=== PATIENT | male | born 1975 | race Two or more races ===

== ENCOUNTER 2016-08-29 22:00 | Emergency (ER) | payer OTHER ==
[2016-08-29 22:20] VITALS: BP 128/78
--- NOTE | 2016-08-29 23:03 | RAD ---
INDICATION: Swallowed a small glass object COMPARISON: None TECHNIQUE: A single view of the abdomen is submitted. FINDINGS: Bones: There are no acute bony findings. Soft tissues: The soft tissues appear normal. The psoas margins are sharp. Bowel gas pattern: Normal Calcifications: There is a small, nonspecific, calcification in the right mid abdomen adjacent to the transverse process of L3 believed to represent an incidental finding. Other: No foreign bodies appreciated IMPRESSION: NO FOREIGN BODY IS IDENTIFIED.
--- NOTE | 2016-08-30 00:35 | ED ---
Abdominal Pain/Male - HPI Summary HPI Summary: 41 male presents to ED with complaint of possibly swallowing glass today just prior to arrival. Patient states he was eating soup his made when he noticed after a few spoonfuls that there was pieces of glass in the soup. Patient called his who stated that she broke a glass earlier however did not think to check that it went in the soup. Patient states it is possible he swallowed some before noticing it due to taking heaping spoonfuls. Admits to some diffuse abdominal pain that he describes as "twisting and colicky". He does not know if it is just because of thinking he swallowed glass. No nausea vomiting. He has not had to go to the bathroom since the incident. He has not taken any medication. States the pain began in the LUQ and has now moved more the the middle of his abdomen/epigastric area. He feels like his stomach his "moving and digesting". States pain is worse than earlier today. No vomiting blood. - History of Current Complaint Chief Complaint: EDGeneral Stated Complaint: MIGHT HAVE SWALLOWED A PIECE OF GLASS Time Seen by Provider: 08/30/16 00:19 Hx Obtained From: Patient Onset/Duration: Sudden Onset Timing: Intermittent Severity Initially: Mild Severity Currently: Moderate Pain Intensity: 6 Pain Scale Used: 0-10 Numeric Location: Diffuse - LUQ, epigastric LLQ Character: Colicy - "Twisting" Aggravating Factor(s): Nothing Alleviating Factor(s): Nothing Associated Signs And Symptoms: Negative: Diaphoresis, Fever, Constipation, Decreased Appetite, Nausea, Vomiting, Diarrhea - Allergies/Home Medications Allergies/Adverse Reactions: Allergies Allergy/AdvReac Type Severity Reaction Status Date / Time Silver Sulfadiazine Allergy Rash Verified 07/12/16 13:45 PMH/Surg Hx/FS Hx/Imm Hx Endocrine/Hematology History: Denies: Hx Anemia Cardiovascular History: Denies: Hx Hypertension Respiratory History: Denies: Hx Asthma - Surgical History Surgery Procedure, Year, and Place: none - Immunization History Immunizations Up to Date: Yes Infectious Disease History: No Infectious Disease History: Denies: History Other Infectious Disease, Traveled Outside the [place] in Last 30 Days - Family History Known Family History: Positive: None - Social History Alcohol Use: None Substance Use Type: Reports: None Smoking Status (MU): Never Smoked Tobacco Review of Systems Constitutional: Negative Eyes: Negative ENT: Negative Cardiovascular: Negative Respiratory: Negative Positive: Abdominal Pain Musculoskeletal: Negative Skin: Negative Neurological: Negative Psychological: Normal All Other Systems Reviewed And Are Negative: Yes Physical Exam Triage Information Reviewed: Yes Vital Signs On Initial Exam: Initial Vitals Temp Pulse Resp BP Pulse Ox 98.2 F 70 16 128/78 97 08/29/16 22:17 08/29/16 22:17 08/29/16 22:17 08/29/16 22:17 08/29/16 22:17 Vital Signs Reviewed: Yes Appearance: Positive: Well-Appearing, No Pain Distress, Well-Nourished Skin: Positive: Warm, Skin Color Reflects Adequate Perfusion, Dry Head/Face: Positive: Normal Head/Face Inspection Eyes: Positive: Conjunctiva Clear ENT: Positive: Hearing grossly normal Neck: Positive: Supple, Nontender Respiratory/Lung Sounds: Positive: Clear to Auscultation, Breath Sounds Present Cardiovascular: Positive: Normal, RRR, Pulses are Symmetrical in both Upper and Lower Extremities Abdomen Description: Positive: Nontender, No Organomegaly, Soft. Negative: Distended, Guarding, Peritoneal Signs Bowel Sounds: Positive: Present Musculoskeletal: Positive: Normal, Strength/ROM Intact Neurological: Positive: Normal, Sensory/Motor Intact, Alert, Oriented to Person Place, Time Psychiatric: Positive: Normal Diagnostics - Vital Signs Vital Signs Temp Pulse Resp BP Pulse Ox 08/29/16 22:17 98.2 F 70 16 128/78 97 - Laboratory Lab Statement: Any lab studies that have been ordered have been reviewed, and results considered in the medical decision making process. - Radiology abdomen Xray Interpretation: No Acute Changes - NO FOREIGN BODY IS IDENTIFIED Radiology Interpretation Completed By: Radiologist Abdominal Pain Fem Course/Dx - Course Course Of Treatment: due to negative x-ray of abdomen of foreign body and non- tender on physical exam while palpating and percussin abdomen patient will be discharged with GI referral and a PPI x 7days. discussed case with Dr Murrieta. Patient is aware of worsening signs and symptoms to watch out for such as vomiting, blood, difficulty going the bathroom, and increasing/intense abdominal pain. - Diagnoses Differential Diagnosis/HQI/PQRI: Bowel Obstruction, Other - FB, peritonitis, bowel perforation Provider Diagnoses: Foreign body ingestion Discharge - Discharge Plan Condition: Stable Disposition: HOME Patient Education Materials: Foreign Body Ingestion (ED) Referrals: Gregg Gray MD [Medical Doctor] - Additional Instructions: Take prescribed PPI for the next 7 days. If symptoms worsen or you develop new symptoms such as vomiting, blood in vomit, difficulty going to the bathroom, increasing abdominal pain and intensity or fever/chills please seek medical attention immediately.
[2016-08-30] MEDS ORDERED: Omeprazole CAP* 20 MG PO ONE (00:47)
--- NOTE | 2016-11-01 07:43 | ED ---
Yo Fraire Anna, scribed for Enmnauel Murrieta MD on 08/30/16 at 0044 . Progress - Progress Note Progress Note: Called to see pt by VINNIE Caceres. Pt is a 41 y/o male coming to [facility] after he ate some glass or plastic while eating soup. He denies vomiting blood or blood in stool. Mild abdominal discomfort. Nontender upon exam. GI follow up recommended. PPI. Antacid. Do not suspect surgical abdomen at this time. No foreign body on XR. Course/Dx - Diagnoses Provider Diagnoses: Ingestion of foreign body The documentation as recorded by the nicoleibeYo Anna accurately reflects the service I personally performed and the decisions made by Glenny ramachandran Jerry, MD.
== END 2016-08-30 00:50 | disposition home or self-care (01) ==
LOC: ED 22:00
DX: T18.9XXA Foreign body of alimentary tract, part unspecified, initial encounter (principal); R10.13 Epigastric pain; R10.9 Unspecified abdominal pain; X58.XXXA Exposure to other specified factors, initial encounter; Y93.9 Activity, unspecified; Y92.9 Unspecified place or not applicable; Y99.9 Unspecified external cause status
CPT/HCPCS: 74000; 99281

== ENCOUNTER 2016-10-05 10:19 | Observation (INO) | payer OTHER ==
[2016-10-05] MEDS ORDERED: Ondansetron INJ* 2 MG/ML VIAL IV ONE (11:29)
[2016-10-05] MEDS ORDERED: NS 0.9% 1000 ML* 1,000 ML IV ONE (11:29)
[2016-10-05 11:46] LABS: Hematocrit 50 % (42-52); Hemoglobin 16.7 g/dl (14.0-18.0); Mean Corpuscular HGB Conc 34 g/dl (31-36); Mean Corpuscular Hemoglobin 30 pg (27-31); Mean Corpuscular Volume 89 fL (80-94); Mean Platelet Volume 7 um3 (7.4-10.4); Red Cell Distribution Width 13 % (10.5-15); White Blood Count 6.5 10^3/ul (3.5-10.8)
[2016-10-05 12:01] LABS: Albumin 4.1 g/dL (3.2-5.2); BUN/Creatinine Ratio 8.4 (8-20); C Reactive Protein 3.58 mg/L (< 5.00); Calcium 9.7 mg/dL (8.6-10.3); EGFR African American 113.5 (>60); EGFR Non-African American 88.3 (>60); Globulin 3.2 g/dL (2-4); Potassium 3.9 mmol/L (3.5-5.0); Total Bilirubin 0.5 mg/dL (0.2-1.0); Total Protein 7.3 g/dL (6.4-8.9)
[2016-10-05] MEDS ORDERED: Iohexol 300* (CONTRAST) 10 ML SDV IV ONE (14:50)
[2016-10-05] MEDS ORDERED: metroNIDAZOLE IV 500 MG/100ML* 500 MG/100 ML BAG IVPB SCH ×2 (15:00→17:00)
[2016-10-05] MEDS ORDERED: Ciprofloxacin 400MG IVPREMIX(* 400 MG/200 ML BAG IVPB SCH ×2 (15:00→17:00)
--- NOTE | 2016-10-05 16:05 | RAD ---
CLINICAL HISTORY: Left abdominal pain and rectal bleeding COMPARISON: None TECHNIQUE: Contrast enhanced CT examination of the abdomen and pelvis from the lung bases through the initial tuberosities. The patient received 113 mL Omnipaque 300 intravenously prior to imaging.The patient received oral contrast as well prior to imaging. FINDINGS: VISUALIZED LUNG BASES: There are hypoventilatory changes and pleural-based linear densities at the dependent-most portions of the lungs. There is no pleural effusion. ABDOMEN AND PELVIS: The right lobe of the liver there is a 5 mm hypodensity (image 23) that cannot be characterized further. The liver is otherwise normal in appearance. The spleen, pancreas and adrenal glands are grossly normal in appearance. The gallbladder is normal. The kidneys are normal in appearance without focal mass, calcification or signs of hydronephrosis. The oral contrast has progressed as far as the rectum. The terminal ileum exhibits questionable mild wall thickening measure 5 mm in thickness (image 51 of 103). The appendix is identified in the right lower quadrant measuring 5 mm in diameter and not exhibiting any signs of acute inflammatory change. In the superior descending colon there is 2 linear metallic objects in the lumen (axial image 35 and coronal image 54 and 53). More distally the distal colon exhibits questionable wall thickening measuring up to 7 mm which may simply be the consequence of underdistention (axial image 77 of 105). There is no gross retroperitoneal or mesenteric lymphadenopathy. The pelvic viscera is normal in appearance. The abdominal aorta and iliac arteries are normal in course and diameter. There are no sinister bone lesions. IMPRESSION: 1. There is highly questionable mild wall thickening involving the terminal ileum and distal rectum which could be seen in inflammatory or infectious bowel disease or simply be the consequence of incomplete distention. 2. There are metallic structures that appear to be within the lumen of the descending colon as described above. Please correlate to the patient's surgical history or recent ingestion of metallic guidance.
[2016-10-05] MEDS ORDERED: Ondansetron INJ* 2 MG/ML VIAL IV PRN (16:13)
[2016-10-05] MEDS ORDERED: NS 0.9% 1000 ML* 1,000 ML IV SCH (16:15)
--- NOTE | 2016-10-05 17:13 | ED ---
Aurea Fraire Janilya, scribed for Mickey Crandall MD on 10/05/16 at 1124 . GI/ HPI - HPI Summary HPI Summary: A 41 y/o male came in to [facility] presenting w/ a gradual onset of constant left sided abd pain starting yesterday. Movement makes the pain worse; nothing makes it better. Pt reports he had colonoscopy yesterday, performed by Dr. Arguelles. Pt states he had removal of 2 polyps. In addition to the abd pain, pt has been bleeding rectally since the procedure. The frequency and amount has increased over time. Pt has been taking Cipro for Abx and has not been taking anything for the pain. - History of Current Complaint Chief Complaint: EDGIBleed Time Seen by Provider: 10/05/16 11:17 Stated Complaint: LT ABD PAIN/RECTAL BLEED Hx Obtained From: Patient Onset/Duration: Started Hours Ago, Atraumatic, Still Present Timing: Constant Severity: Moderate Current Severity: Moderate Pain Intensity: 6 Location of Pain: LUQ, LLQ Pain Characteristics: Dull Aggravating Factor(s): Movement Alleviating Factor(s): Nothing - Allergy/Home Medications Allergies/Adverse Reactions: Allergies Allergy/AdvReac Type Severity Reaction Status Date / Time Silver Sulfadiazine Allergy Rash Verified 10/05/16 10:42 PMH/Surg Hx/FS Hx/Imm Hx Previously Healthy: Yes Endocrine/Hematology History: Denies: Hx Anemia Cardiovascular History: Denies: Hx Hypertension Respiratory History: Denies: Hx Asthma - Surgical History Surgery Procedure, Year, and Place: none Infectious Disease History: No Infectious Disease History: Denies: History Other Infectious Disease, Traveled Outside the [place] in Last 30 Days - Family History Known Family History: Positive: None - Social History Alcohol Use: None Substance Use Type: Reports: None Smoking Status (MU): Never Smoked Tobacco Review of Systems Positive: Abdominal Pain Positive: other - rectal bleeding All Other Systems Reviewed And Are Negative: Yes Physical Exam Triage Information Reviewed: Yes Vital Signs On Initial Exam: Initial Vitals Temp Pulse Resp BP Pulse Ox 97.8 F 76 16 113/65 99 10/05/16 10:42 10/05/16 10:42 10/05/16 10:42 10/05/16 10:42 10/05/16 10:42 Vital Signs Reviewed: Yes Appearance: Positive: Well-Appearing, No Pain Distress Skin: Positive: Warm, Skin Color Reflects Adequate Perfusion, Dry Head/Face: Positive: Normal Head/Face Inspection Eyes: Positive: Normal ENT: Positive: Normal ENT inspection Neck: Positive: Supple, Nontender Respiratory/Lung Sounds: Positive: Clear to Auscultation, Breath Sounds Present Cardiovascular: Positive: RRR Abdomen Description: Positive: Nontender, Soft Bowel Sounds: Positive: Present Musculoskeletal: Positive: Normal Neurological: Positive: Normal Psychiatric: Positive: Affect/Mood Appropriate Diagnostics - Vital Signs Vital Signs Temp Pulse Resp BP Pulse Ox 10/05/16 10:42 97.8 F 76 16 113/65 99 - Laboratory Lab Results: Lab Results 10/05/16 10/05/16 Range/Units 11:30 11:30 WBC 6.5 (3.5-10.8) 10^3/ul RBC 5.60 H (4.0-5.4) 10^6/ul Hgb 16.7 (14.0-18.0) g/dl Hct 50 (42-52) % MCV 89 (80-94) fL MCH 30 (27-31) pg MCHC 34 (31-36) g/dl RDW 13 (10.5-15) % Plt Count 201 (150-450) 10^3/ul MPV 7 L (7.4-10.4) um3 Neut % (Auto) 58.0 (38-83) % Lymph % (Auto) 33.1 (25-47) % [place] % (Auto) 7.1 (1-9) % Eos % (Auto) 1.3 (0-6) % Baso % (Auto) 0.5 (0-2) % Absolute Neuts (auto) 3.8 (1.5-7.7) 10^3/ul Absolute Lymphs (auto) 2.2 (1.0-4.8) 10^3/ul Absolute Monos (auto) 0.5 (0-0.8) 10^3/ul Absolute Eos (auto) 0.1 (0-0.6) 10^3/ul Absolute Basos (auto) 0 (0-0.2) 10^3/ul Absolute Nucleated RBC 0.01 10^3/ul Nucleated RBC % 0.1 Sodium 136 (133-145) mmol/L Potassium 3.9 (3.5-5.0) mmol/L Chloride 103 (101-111) mmol/L Carbon Dioxide 28 (22-32) mmol/L Anion Gap 5 (2-11) mmol/L BUN 8 (6-24) mg/dL Creatinine 0.95 (0.67-1.17) mg/dL Est GFR ( Amer) 113.5 (>60) Est GFR (Non-Af Amer) 88.3 (>60) BUN/Creatinine Ratio 8.4 (8-20) Glucose 80 (70-100) mg/dL Calcium 9.7 (8.6-10.3) mg/dL Total Bilirubin 0.50 (0.2-1.0) mg/dL AST 12 L (13-39) U/L ALT 20 (7-52) U/L Alkaline Phosphatase 53 (34-104) U/L C-Reactive Protein 3.58 (< 5.00) mg/L Total Protein 7.3 (6.4-8.9) g/dL Albumin 4.1 (3.2-5.2) g/dL Globulin 3.2 (2-4) g/dL Albumin/Globulin Ratio 1.3 (1-3) Result Diagrams: 10/05/16 11:30 10/05/16 11:30 Lab Statement: Any lab studies that have been ordered have been reviewed, and results considered in the medical decision making process. - CT abd/pel CT Interpretation: Positive (See Comments) - IMPRESSION: 1. There is highly questionable mild wall thickening involving the terminal ileum and distal rectum which could be seen in inflammatory or infectious bowel disease or simply be the consequence of incomplete distention. 2. There are metallic structures that appear to be within the lumen of the descending colon as described above. Please correlate to the patient's surgical history or recent ingestion of metallic guidance. CT Interpretation Completed By: Radiologist GIGU Course/Dx - Course Course Of Treatment: Mr. Tripp Garrison is stable for the time being but Dr. Gray was consulted as it is difficult to assess the amount of bleeding that he may have. Dr. Gray decided to OBV him for observation. - Diagnoses Provider Diagnoses: GI bleed - Physician Notifications Discussed Care Of Patient With: Dr. Gray, on-call for Dr. Arguelles ( gastroenterology) at 1255: recommends CT scan of pt; agrees to evalute pt. Discharge - Discharge Plan Condition: Stable Disposition: ADMITTED TO [facility] The documentation as recorded by the Aurea barraza Janilya accurately reflects the service I personally performed and the decisions made by me, Mickey Crandall MD.
--- NOTE | 2016-10-05 17:41 | CONS ---
CONSULTATION NOTE: DATE OF CONSULT: 10/05/16 REASON FOR THE CONSULTATION: Left-sided abdominal pain, rectal bleeding 1 day after colonoscopy and polypectomy. NARRATIVE: This is a very hilario healthy 41-year-old gentleman who underwent a screening colonoscopy yesterday due to a family history of colorectal cancer. At the time of that study, polyps were removed, one in particular involving the descending colon was removed with a cold snare. Apparently, a large mucosal defect was created thereafter and clips were applied. The results were discussed with the patient and his , he was kept on a clear liquid diet and prescribed ciprofloxacin to go home with. After the procedure, he did not report any pain or symptoms. However, through the night, he developed episodes of bright red blood per rectum. He describes fresh red blood, perhaps 4 times through the night with loose stools. He also developed pain in the left side of his abdomen, particularly if he moves or turns. He was advised to come to the emergency room. He did not have any fevers, nausea or vomiting. He has only been on clear liquids since the procedure. On arrival to the emergency room, he appeared hemodynamically stable. He was afebrile. Initial data demonstrated a white count of 6.5 and a hemoglobin of 16.7. He is awaiting a CAT scan of the abdomen. Prior to the colonoscopy, he was not having any GI symptoms and he states that this was his third colonoscopy. However, this was the first time polyps were removed. PAST MEDICAL HISTORY: Negative. He has had no abdominal surgeries. MEDICATIONS: Ambulatory medicines were just the ciprofloxacin. FAMILY HISTORY: Notable for father who had colon cancer at a very young age. REVIEW OF SYSTEMS: He has had no nausea, vomiting, fevers, chills, or melena. He has not been on any aspirin or NSAIDs. PHYSICAL EXAM: He is a pleasant gentleman, looking comfortable in no acute distress. He is not pale. Temperature of 97.8. Blood pressure is 113/65, heart rate is 76 and regular. He is anicteric. He appears clinically euvolemic. Lungs are clear. Cardiac exam reveals a regular rhythm without murmur. Abdomen is soft. There is mild tenderness in the left upper quadrant without rebound, guarding, or rigidity. Bowel sounds are hyperactive. There is no organomegaly. On rectal exam, there is no palpable lesion and there is is brown guaiac-positive stool. DIAGNOSTIC STUDIES/LAB DATA: Other data include a BUN of 8, creatinine of 0.95. Normal liver panel. CT scan is pending at this time. IMPRESSION: A 41-year-old gentleman who underwent a colonoscopy for routine reasons yesterday but had a relatively large mucosal defect created by polypectomy, now presenting with bleeding and pain. This likely is related to the poly-pectomy site, I doubt a significant complication such as perforation, but mucosal injury and perhaps postpolypectomy bleed is the likely etiology. I would recommend admission at least for 24 hours after the CAT scan is performed. If the CAT scan points to a more significant pathology, then further evaluation, perhaps surgical will not be required. If he has more extensive bleeding, then repeat colonoscopy can be carried out. This was explained to the patient. CC: Dr. Arguelles * [id number]/[facility] #: [id number] MTDD
[2016-10-05] MEDS: Ciprofloxacin 400MG IVPREMIX(* 400 MG/200 ML BAG IVPB SCH (17:51)
[2016-10-05 17:56] LABS: Hematocrit 48 % (42-52); Hemoglobin 15.9 g/dl (14.0-18.0)
[2016-10-05] MEDS: metroNIDAZOLE IV 500 MG/100ML* 500 MG/100 ML BAG IVPB SCH (20:25)
--- NOTE | 2016-10-05 20:55 | HP ---
HISTORY AND PHYSICAL: DATE OF ADMISSION: 10/05/16 PRIMARY CARE PROVIDER: [facility]. ATTENDING PHYSICIAN WHILE IN THE HOSPITAL: Dr. Fernanda Gandara* (report dictated by Camacho Guallpa NP) CHIEF COMPLAINT: 1. Bright red blood per rectum. 2. Left lower quadrant abdominal pain. HISTORY OF PRESENT ILLNESS: Mr. Almaguer is a 41-year-old male patient, who was previously healthy. He denied any chronic medical problems and denied having any previous surgeries. He yesterday underwent a routine screening colonoscopy as his father had a history of colon cancer at the age of 47. Three polyps were found and removed. I will refer you to Dr. Arguelles's report for further details. The patient was instructed that should he have any abdominal discomfort or bright red blood per rectum that he should seek medical attention. Overnight, last night, he developed left lower quadrant abdominal discomfort, cramping, and pain, and then he started having bright red blood per rectum this morning in the early hours, so he presented to the ER for further evaluation and care. He denies having any lightheadedness. Denies feeling short of breath. He says that the pain is improved now. He says his last bowel movement consisted of clots. He denied having any fevers or chills and states that the pain is quite tolerable at this point. He came to the ER, was evaluated here by Dr. Arguelles's associate, Dr. Gray, and also by Dr. Arguelles and it was felt that the patient deserved an overnight stay to monitor for bleeding, place him on antibiotics, and he also underwent CT imaging, which did not show any free air. Hospitalist service was asked to evaluate for admission. PAST MEDICAL HISTORY: Denied. PAST SURGICAL HISTORY: Denied. HOME MEDICATIONS: Denied. ALLERGIES TO MEDICATIONS: Include SILVADENE. FAMILY HISTORY: His mother's history was reviewed, essentially noncontributory , but his father had a colon cancer at the age of 47. SOCIAL HISTORY: He does not smoke. He does not drink. He is , with children. He is a grad student at [employer]. Surrogate decision maker is his . REVIEW OF SYSTEMS: There is no documented fever. He denied having any significant weight change. There is no double vision. He denies any ear discharge. There is no rhinorrhea. No sore throat. No thyroid enlargement. He denied having any chest pain. There is no orthopnea, there is no nocturnal dyspnea. There is no abdominal pain. There is no nausea, no vomiting. No dysuria, no frequency. No seizure, no loss of consciousness. No pruritus and no skin ulcerations. Review of 14 systems was completed, all others negative. PHYSICAL EXAMINATION GENERAL: At this time, Mr. Almaguer is a 41-year-old male patient. He is well- nourished, well-developed. He does not appear to be in any acute distress. VITAL SIGNS: Blood pressure 112/71 with a pulse of 65, respirations 18, O2 sat 97%, temperature 98.9. HEENT: Head is atraumatic and normocephalic. Eyes: Sclerae are anicteric. Throat: Oral mucosa appears to be moist. No oropharyngeal erythema. NECK: Supple. LUNGS: Clear to auscultation but no wheezes, rales, or rhonchi. HEART: Sounds S1 and S2. Regular rate and rhythm. No murmurs, rubs, or gallops. ABDOMEN: Soft, it was flat. He has some mild tenderness in the left lower quadrant. Bowel sounds present. EXTREMITIES: Pulses were 2+ throughout. He is able to move all 4 extremities with 5/5 strength. NEUROLOGIC: He is awake, alert, oriented x3. No gross focal deficits. SKIN: Intact. DIAGNOSTIC STUDIES/LAB DATA: Today revealed WBC of 6.5, RBC of 5.60, hemoglobin 16.7, hematocrit 50, platelet count of 201. Sodium was 136, potassium is 3.9, chloride of 103, bicarb 28, BUN 8, creatinine 0.95, glucose was 80, calcium 9.7. Total bili 0.5, AST 12, ALT 20, alk phos 53. Albumin of 4.1. He had an abdominal pelvic CT scan obtained today showed there is highly questionable mild wall thickening involving the terminal ileum and distal rectum , which could be seen in inflammatory or infectious bowel disease or simply be the consequence of incomplete distention. Impression 2: There are metallic structures that appear to be within the lumen of the descending colon as described above. Please correlate to the patient's surgical history or recent ingestion metallic guidance. Old medical records were reviewed. ASSESSMENT AND PLAN: Mr. Almaguer is a 41-year-old male patient, who underwent colonoscopy yesterday with [address] Arguelles. Postcolonoscopy, he was having abdominal discomfort with rectal bleeding. He came to the ER, was evaluated. CT scan was negative; however, he will be admitted under observation status for: 1. Abdominal discomfort with lower rectal bleeding. I suspect this is probably consequential from the recent colonoscopy. Our plan at this point though is to go ahead and hydrate him, keep him on a clear liquid diet, monitor him overnight for any fevers, and place him on antibiotics empirically and continue to follow his symptoms. Should he remain afebrile and he tolerates a diet tomorrow he possibly could be discharged home tomorrow, but we would like to observe him overnight. We have also ordered empiric Cipro and Flagyl. 2. DVT prophylaxis. He will be placed on SCDs. 3. Code status. Full code. 4. Fluids, electrolytes, and nutrition. Again, clear liquid diet. I have ordered normal saline at 100 cc an hour for 1 more liter. TIME SPENT: On the admission 60 minutes, greater than half the time spent face- to- face with the patient obtaining my history and physical; other half time spent going over the plan of care with the patient and implementing plan of care. I discussed plan of care with my attending, Dr. Gandara; she is in agreement. CAMACHO GUALLPA NP CC: [facility]; Dr. Gray; Dr. Arguelles * [id number]/[facility] #: [id number] [facility]
[2016-10-06] MEDS: metroNIDAZOLE IV 500 MG/100ML* 500 MG/100 ML BAG IVPB SCH ×2 (05:33→11:57)
[2016-10-06] MEDS: Ciprofloxacin 400MG IVPREMIX(* 400 MG/200 ML BAG IVPB SCH (06:46)
[2016-10-06 07:37] LABS: Hematocrit 46 % (42-52); Hemoglobin 15.3 g/dl (14.0-18.0); Mean Corpuscular HGB Conc 34 g/dl (31-36); Mean Corpuscular Hemoglobin 30 pg (27-31); Mean Corpuscular Volume 90 fL (80-94); Mean Platelet Volume 8 um3 (7.4-10.4); Red Blood Count 5.08 10^6/ul (4.0-5.4); Red Cell Distribution Width 13 % (10.5-15); White Blood Count 5.7 10^3/ul (3.5-10.8)
[2016-10-06 07:50] LABS: BUN/Creatinine Ratio 7.5 (8-20); Calcium 8.9 mg/dL (8.6-10.3); EGFR Non-African American 77.8 (>60); Potassium 3.7 mmol/L (3.5-5.0)
--- NOTE | 2016-10-06 09:58 | DCNOTE ---
Patient seen this morning. Pain has mostly resolved. No further bleeding. Seen by Dr. Gray this AM who would like to advance diet and if tolerated, d/c home. On exam, RRR, s1 and s2 present, no m/g/r, abd soft, NTND, BS+ Will trial regular diet, if tolerated will discharge home to continue outpatient ABx ordered by Dr. Arguelles and f/u with GI in the office.
[2016-10-06 12:07] VITALS: BP 110/65
--- NOTE | 2016-10-07 02:16 | DS ---
DISCHARGE SUMMARY: DATE OF ADMISSION: 10/05/16 DATE OF DISCHARGE: 10/06/16 PRIMARY CARE PHYSICIAN: Yarelis Cisneros. CONSULTS DURING HOSPITALIZATION: Dr. Gregg Gray, Gastroenterology. DISCHARGE MEDICATION REGIMEN: Ciprofloxacin 500 mg by mouth 2 times daily. STUDIES DONE DURING HOSPITALIZATION: CT abdomen and pelvis: There is highly questionable mild wall thickening involving the terminal ileum and distal rectum which could be seen in inflammatory infectious bowel disease or simply could be the consequence of incomplete distention. There are metallic structures that appeared to be within the lumen of the descending colon as described above. HISTORY OF PRESENT ILLNESS AND HOSPITAL SUMMARY: Please see the full history and physical by Camacho Guallpa NP, for full details. Briefly, Mr. Tripp Garrison is a 41- year-old man with no past medical history who presented to the hospital after he developed abdominal pain and bright red blood per rectum after a colonoscopy by Dr. Arguelles. The patient had 3 polyps removed with a large mucosal defect created with one of the polypectomies. Clips were placed, and the patient was discharged home with instructions to return to the hospital if he had any abdominal pain or bleeding which he did develop. He had bright red blood per rectum about 4 times overnight and presented to the hospital the following day. He was seen by GI. His hemoglobin was trended, which was down slightly; however, still at 15.3 on the day of discharge. His bleeding was ____ _ in the hospital and he tolerated a regular diet. The patient will be discharged home to complete his outpatient course of the ciprofloxacin that was prescribed by Dr. Arguelles and will follow up with him as well as with the PCP as an outpatient. TIME SPENT: Total time spent on this discharge 35 minutes. This is a summary of the hospitalization. Please see the full medical record for further details. CC: Yarelis Cisneros; Dr. Romie Arguelles; Dr. Gregg Gray * [id number]/[facility] #: [id number] [facility]
== END 2016-10-06 13:30 | disposition home or self-care (01) ==
LOC: ED 10:19 → MED 14:54
PROVIDERS: ADMIT Internal Medicine; ATTEND Hospitalist
DX: K91.840 Postprocedural hemorrhage of a digestive system organ or structure following a digestive system procedure (principal); R10.32 Left lower quadrant pain
CPT/HCPCS: 36415; 74177; 80048; 80053; 85014; 85018; 85025; 85610; 86140; 96361; 96365; 96366; 96375; 99283; G0378; J0744; J2405; Q9967

== ENCOUNTER 2018-01-07 15:45 | Emergency (ER) | payer OTHER ==
[2018-01-07] MEDS ORDERED: Erythromycin TOPICAL GEL* 30 GM TUBE TOPICAL ONE (16:16)
--- NOTE | 2018-01-07 16:16 | ED ---
Throat Pain/Nasal Congestion - HPI Summary HPI Summary: 42-year-old male presents with bilateral styes in the past couple days. He had a stye started left eye that placed ointment on it and then he developed one right eye. No change in vision. No discharge. Has history of styes. Does not wear contacts or glasses. Did not get anything in his eye. - History of Current Complaint Chief Complaint: EDEyeProblem Time Seen by Provider: 01/07/18 16:01 - Allergies/Home Medications Allergies/Adverse Reactions: Allergies Allergy/AdvReac Type Severity Reaction Status Date / Time silver sulfadiazine Allergy Hives Verified 01/07/18 15:57 PMH/Surg Hx/FS Hx/Imm Hx Endocrine/Hematology History: Denies: Hx Anemia Cardiovascular History: Denies: Hx Hypertension Respiratory History: Denies: Hx Asthma Sensory History: Reports: Hx Contacts or Glasses Denies: Hx Hearing Aid Opthamlomology History: Reports: Hx Contacts or Glasses - Surgical History Surgery Procedure, Year, and Place: none Infectious Disease History: No Infectious Disease History: Denies: History Other Infectious Disease, Traveled Outside the in Last 30 Days - Family History Known Family History: Positive: None - Social History Alcohol Use: Weekly Substance Use Type: Reports: None Smoking Status (MU): Never Smoked Tobacco Review of Systems Negative: Fever Positive: Other - bilateral eye stye Negative: Chest Pain Negative: Shortness Of Breath All Other Systems Reviewed And Are Negative: Yes Physical Exam Triage Information Reviewed: Yes Vital Signs On Initial Exam: Initial Vitals Temp Pulse Resp BP Pulse Ox 98.7 F 86 17 136/77 98 01/07/18 15:51 01/07/18 15:51 01/07/18 15:51 01/07/18 15:51 01/07/18 15:51 Vital Signs Reviewed: Yes Appearance: Positive: Well-Appearing Skin: Positive: Warm, Dry Head/Face: Positive: Normal Head/Face Inspection Eyes: Positive: EOMI, KAMERON, Conjunctiva Clear, Other: - syte on upper lid bilteral eyes ENT: Positive: Normal ENT inspection, Pharynx normal, TMs normal Respiratory/Lung Sounds: Positive: Clear to Auscultation, Breath Sounds Present Cardiovascular: Positive: Normal, RRR Musculoskeletal: Positive: Normal Neurological: Positive: Normal Psychiatric: Positive: Normal Diagnostics - Vital Signs Vital Signs Temp Pulse Resp BP Pulse Ox 01/07/18 15:51 98.7 F 86 17 136/77 98 - Laboratory Lab Statement: Any lab studies that have been ordered have been reviewed, and results considered in the medical decision making process. EENT Course/Dx - Course Course Of Treatment: 42-year-old male presents with bilateral styes in the past couple days. He had a stye started left eye that placed ointment on it and then he developed one right eye. No change in vision. No discharge. Has history of styes. Does not wear contacts or glasses. Did not get anything in his eye. on exam has bilateral stye upper lids. normal conjunctiva. told to start using heat and to place erythromycin on eye. patient understand and agrees with plan. - Differential Diagnoses Differential Diagnoses: Conjunctivitis, Other - stye, selwynon - Diagnoses Provider Diagnoses: Stye Discharge - Sign-Out/Discharge Documenting (check all that apply): Discharge/Admit/Transfer - Discharge Plan Condition: Good Disposition: HOME Patient Education Materials: Alfredo (ED) Referrals: Romie Rogel MD [Medical Doctor] - Additional Instructions: Place ointment on eye three times a day for [address] heat on area or warm tea bag four times a day Take Tylenol or ibuprofen for pain every 6 hours Follow up with ophthalmology if no improvement in 5 days Return to ED if develop any new or worsening symptoms - Billing Disposition and Condition Condition: GOOD Disposition: Home
[2018-01-07 16:53] VITALS: BP 118/77
[2018-01-07] MEDS ORDERED: Erythromycin OPTH OINT* APPLIC OINT ONE (17:00)
== END 2018-01-07 16:51 | disposition home or self-care (01) ==
LOC: ED 15:45
DX: H00.026 Hordeolum internum left eye, unspecified eyelid (principal); H00.023 Hordeolum internum right eye, unspecified eyelid
CPT/HCPCS: 99282; A9270-GY